=== PATIENT | male | born 1950 | race Caucasian/White ===

== ENCOUNTER 2019-12-31 09:45 | Outpatient (RCR) | payer MEDICARE, OTHER, SELFPAY ==
--- NOTE | 2019-11-24 16:43 | PT.OIE ---
Current Diagnoses Tinnitus, bilateral (11/24/19) Chronic pansinusitis (11/24/19) Dizziness and giddiness (11/24/19) Visit Care Team Role Provider Type Petty Ma DO Primary Care Provider Non-Staff Specialty: Medical Address: [address] [place] [address], [address] Email: Nelson Magaña MD Attending Provider Physician Referring Provider Specialty: Ear, Nose, Throat Address: [address] [place] [address], [id number] Email: [email or web address] Physical Therapy Initial Evaluation PT-OP-A Visit Information Start: 11/24/19 16:18 Freq: Status: Active Protocol: Document 11/24/19 14:30 DCW (Rec: 11/24/19 16:43 DCW [id number]) Out-Patient Physical Therapy Visit Information Visit Information Visit Type Initial Evaluation Visit Start Time 14:30 Visit Stop Time 15:15 Total Visit Minutes 45 Visit Number 1 Number of BERRY PICKER MACHINE OPERATOR Visits 0 Evaluation Information Evaluation Date 11/24/19 PT-OP-B Current Condition Start: 11/24/19 16:18 Freq: Status: Active Protocol: Document 11/24/19 14:30 DCW (Rec: 11/24/19 16:43 DCW [id number]) Current Condition History of Current Condition Onset Date six month history Current Complaints Instability/dizziness with turns History of Current Condition Pt is a 69 year old male complaining of a six month history of motion-induced vertigo and imbalance. Pt reports episodes are provoked by quick head turns or round penning his horses, where essentially he holds the reigns and turns in a [place] as the horse walks around him. Notes if he does two or more of these slow circles, he feels dizzy, and needs to stop and hold on to the horse so he doesn't lose his balance. Pt denies recent hearing changes, diplopia, dysarthria, discoordination, or decreased mentation/consciousness. OPt does note some tinnitus in his right ear, but this has been an ongoing issue for 6+ years. Pt reports symptoms are not waxing/waning in nature. Pt denies excessive smoking or drinking, but does admit to 5- 6 cups of coffee daily. Pt reports he typically drinks coffee until noon, and then switches to water, of which he drinks 40-50 oz daily. 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 Patient Reported Progress Worse Patient Questionnaires Dizziness Handicap Inventory DHI Score 14% PT-OP-O Vestibular Start: 11/24/19 16:18 Freq: Status: Active Protocol: Document 11/24/19 14:30 DCW (Rec: 11/24/19 16:43 DCW [id number]) Vestibular Assessment Screening Tests Vestibular Artery Screen Negative Auditory Tests Sharma Test Within normal limits Rinne Test Negative Air Conduction Results Equal Visual Testing Smooth Pursuits Horizontal WNL Smooth Pursuits Vertical WNL Saccades Horizontal WNL Saccades Vertical WNL Gaze Evoked Nystagmus With Fixation Negative Gaze Evoked Nystagmus Without Fixation Negative Heave Test Negative Thrust Head Negative Phi String Test WNL DVA (Line Degradation) 3 Head Shake Negative Positional Testing Mary-Hallpike Negative Left,Negative Right Rolling Test Negative Left,Negative Right Vestibular Function Tests Fukuda Test 60? R rotation PT-OP-T Assessment and Plan Start: 11/24/19 16:18 Freq: Status: Active Protocol: Document 11/24/19 14:30 DCW (Rec: 11/24/19 16:43 DCW [id number]) Physical Therapy Assessment Rehab Potential Rehabilitation Potential Good Evaluation Complexity Number of Personal Factors/Comorbidities 1-2 Number of Body Systems Impaired 1-2 Clinical Presentation at Evaluation Stable Impairments Impairments Balance,Vestibular Goals Two Impairment Pt unable to perform round penning with his horse secondary to dizziness Furniture Arranger Goal (LTG) Pt to report ability to perform eight turns while performing a round pen with his horse with no increased symptoms. LTG Duration 01/24/20 One Impairment Pt does not have an appropriate home exercise program Short Term Goal (STG) Pt to be independent and compliant with an appropriate HEP STG Duration 12/24/19 Assessment Summary Assessment Pt's vestibular evaluation almost entirely negative today . Pt did have a 60? rotation during his Fukuda step test, however with no other positive tests, this is a very poor diagnostic test, due to myriad other possibilities which could cause a rotation. Only other noted sign of a deficit was pt instructed to turn 720? slowly, mimicking his motions while performing a round pen with his horse, and afterward he demonstrated 4-5 beats of horizontal nystagmus, which really shouldn't be caused by a turn that slowly. Theoretically, this could be caused by increased density of the endolymph due to possible dehydration, I feel this would be rather unlikely, however this was really the only abnormal sign noted throughout his entire examination. Pt should benefit from further vestibular and balance examination to help with differential diagnosis. Pt also scheduled to return to ENT for follow-up testing. Physical Therapy Plan Frequency and Duration Frequency of Treatment 2x/Week Duration of Treatment 2 months Plan of Care Start Date 11/24/19 Plan of Care End Date 01/24/20 Therapeutic Interventions Therapeutic Interventions Balance Training,Coordination Training,Neuromuscular Re- education,Patient/Caregiver Education,Self-Care/Home Management,Therapeutic Exercises,Vestibular Rehabilitation Next Visit Focus/Plan Next Note Type Treatment Note Next Visit Plan Further vestibular and balance testing
--- NOTE | 2019-11-24 16:44 | PT.OPPOC ---
Physical, Occupational & Speech Therapy At [facility] Current Diagnoses Tinnitus, bilateral (11/24/19) Chronic pansinusitis (11/24/19) Dizziness and giddiness (11/24/19) Visit Care Team Role Provider Type Petty Ma DO Primary Care Provider Non-Staff Specialty: Medical Address: [address] [place] [address], [id number] Email: Nelson Magaña MD Attending Provider Physician Referring Provider Specialty: Ear, Nose, Throat Address: [address] [place] [address], [id number] Email: [email or web address] Plan Of Care PT-OP-T Assessment and Plan Start: 11/24/19 16:18 Freq: Status: Active Protocol: Document 11/24/19 14:30 DCW (Rec: 11/24/19 16:43 DCW [id number]) Physical Therapy Assessment Rehab Potential Rehabilitation Potential Good Evaluation Complexity Number of Personal Factors/Comorbidities 1-2 Number of Body Systems Impaired 1-2 Clinical Presentation at Evaluation Stable Impairments Impairments Balance,Vestibular Goals Two Impairment Pt unable to perform round penning with his horse secondary to dizziness Shelter Goal (LTG) Pt to report ability to perform eight turns while performing a round pen with his horse with no increased symptoms. LTG Duration 01/24/20 One Impairment Pt does not have an appropriate home exercise program Short Term Goal (STG) Pt to be independent and compliant with an appropriate HEP STG Duration 12/24/19 Assessment Summary Assessment Pt's vestibular evaluation almost entirely negative today . Pt did have a 60? rotation during his Fukuda step test, however with no other positive tests, this is a very poor diagnostic test, due to myriad other possibilities which could cause a rotation. Only other noted sign of a deficit was pt instructed to turn 720? slowly, mimicking his motions while performing a round pen with his horse, and afterward he demonstrated 4-5 beats of horizontal nystagmus, which really shouldn't be caused by a turn that slowly. Theoretically, this could be caused by increased density of the endolymph due to possible dehydration, I feel this would be rather unlikely, however this was really the only abnormal sign noted throughout his entire examination. Pt should benefit from further vestibular and balance examination to help with differential diagnosis. Pt also scheduled to return to ENT for follow-up testing. Physical Therapy Plan Frequency and Duration Frequency of Treatment 2x/Week Duration of Treatment 2 months Plan of Care Start Date 11/24/19 Plan of Care End Date 01/24/20 Therapeutic Interventions Therapeutic Interventions Balance Training,Coordination Training,Neuromuscular Re- education,Patient/Caregiver Education,Self-Care/Home Management,Therapeutic Exercises,Vestibular Rehabilitation Next Visit Focus/Plan Next Note Type Treatment Note Next Visit Plan Further vestibular and balance testing Plan of Care Dates Plan of Care Start Date 11/24/19 Plan of Care End Date 01/24/20 Electronically Signed by: Mo Colon, PT 11/24/19 0674 Please Sign and Return: I have reviewed this Plan of Care and certify that the skilled therapy services above are required to meet the patient?s needs. Physician Signature Date Printed Name and Credentials Clinical Instructor Signature Printed Name and Credentials
--- NOTE | 2019-12-31 10:30 | PT.OTN ---
Current Diagnoses Tinnitus, bilateral (12/31/19) Chronic pansinusitis (12/31/19) Dizziness and giddiness (12/31/19) Physical Therapy Treatment Note PT-OP-A Visit Information Start: 11/24/19 16:18 Freq: Status: Active Protocol: Document 12/31/19 09:45 DCW (Rec: 12/31/19 10:27 DCW [id number]) Out-Patient Physical Therapy Visit Information Visit Information Visit Type Treatment Note Visit Start Time 09:45 Visit Stop Time 10:25 Total Visit Minutes 35 Visit Number 2 Number of CIRCUIT BREAKER SUPERVISOR Visits 0 Evaluation Information Evaluation Date 11/24/19 PT-OP-B Current Condition Start: 11/24/19 16:18 Freq: Status: Active Protocol: Document 11/24/19 14:30 DCW (Rec: 11/24/19 16:43 DCW [id number]) Current Condition History of Current Condition Onset Date six month history Current Complaints Instability/dizziness with turns History of Current Condition Pt is a 69 year old male complaining of a six month history of motion-induced vertigo and imbalance. Pt reports episodes are provoked by quick head turns or round penning his horses, where essentially he holds the reigns and turns in a [place] as the horse walks around him. Notes if he does two or more of these slow circles, he feels dizzy, and needs to stop and hold on to the horse so he doesn't lose his balance. Pt denies recent hearing changes, diplopia, dysarthria, discoordination, or decreased mentation/consciousness. OPt does note some tinnitus in his right ear, but this has been an ongoing issue for 6+ years. Pt reports symptoms are not waxing/waning in nature. Pt denies excessive smoking or drinking, but does admit to 5- 6 cups of coffee daily. Pt reports he typically drinks coffee until noon, and then switches to water, of which he drinks 40-50 oz daily. PT-OP-C Subjective Start: 11/24/19 16:18 Freq: Status: Active Protocol: Document 12/31/19 09:45 DCW (Rec: 12/31/19 10:27 DCW [id number]) OP-PT Subjective Patient Comments Patient Comments I don't really feel like my symptoms have changed at all, I've just started doing things differently. I don't go in tight circles with the horse, so it hasn't been bothering me as much. Mentally, I see myself as [age], but I've been working on realizing that I'm in my 60s now. PT-OP-E Functional Tests Start: 12/31/19 10:28 Freq: Status: Active Protocol: Document 12/31/19 09:45 DCW (Rec: 12/31/19 10:30 DCW [id number]) Functional Tests Functional Gait Assessment Score 23/30 Functional Gait Assessment Impairment 1 to <20% Impaired (Score 25- Rating 29) PT-OP-O Vestibular Start: 11/24/19 16:18 Freq: Status: Active Protocol: Document 12/31/19 09:45 DCW (Rec: 12/31/19 10:30 DCW [id number]) Vestibular Assessment Visual Testing Smooth Pursuits Horizontal WNL Smooth Pursuits Vertical WNL Heave Test Negative Thrust Head Negative PT-OP-Q Treatments Start: 11/24/19 16:18 Freq: Status: Active Protocol: Document 12/31/19 09:45 DCW (Rec: 12/31/19 10:27 DCW [id number]) Neuro Re-Education Treatment Other Activities 1 Comments Balance testing PT-OP-T Assessment and Plan Start: 11/24/19 16:18 Freq: Status: Active Protocol: Document 12/31/19 09:45 DCW (Rec: 12/31/19 10:27 DCW [id number]) Physical Therapy Assessment Goals Two Impairment Pt unable to perform round penning with his horse secondary to dizziness Automotive Electrical Fitter Goal (LTG) Pt to report ability to perform eight turns while performing a round pen with his horse with no increased symptoms. LTG Duration 01/24/20 One Impairment Pt does not have an appropriate home exercise program Short Term Goal (STG) Pt to be independent and compliant with an appropriate HEP STG Duration 12/24/19 Assessment Summary Assessment Pt still testing with minimal deficits, unclear cause of ongoing subjective complaints. Pt seeing ENT tomorrow, will likely discharge from PT, however will wait until after ENT appointment to see if Dr Magaña has any further ideas or suggestions. Physical Therapy Plan Frequency and Duration Frequency of Treatment 2x/Week Duration of Treatment 2 months Plan of Care Start Date 11/24/19 Plan of Care End Date 01/24/20 Therapeutic Interventions Therapeutic Interventions Balance Training,Coordination Training,Neuromuscular Re- education,Patient/Caregiver Education,Self-Care/Home Management,Therapeutic Exercises,Vestibular Rehabilitation Next Visit Focus/Plan Next Note Type Treatment Note Next Visit Plan Further vestibular and balance testing
--- NOTE | 2020-01-02 08:36 | PT.OPDS ---
Current Diagnoses Tinnitus, bilateral (12/31/19) Chronic pansinusitis (12/31/19) Dizziness and giddiness (12/31/19) Visit Care Team Role Provider Type Petty Ma DO Primary Care Provider Non-Staff Specialty: Medical Address: [address] [place] [address], [id number] Email: Nelson Magaña MD Attending Provider Physician Referring Provider Specialty: Ear, Nose, Throat Address: [address] [place] [address], [address] Email: [email or web address] Visit Number Visit Number 2 Discharge Summary PT-OP-B Current Condition Start: 11/24/19 16:18 Freq: Status: Active Protocol: Document 11/24/19 14:30 DCW (Rec: 11/24/19 16:43 DCW [id number]) Current Condition History of Current Condition Onset Date six month history Current Complaints Instability/dizziness with turns History of Current Condition Pt is a 69 year old male complaining of a six month history of motion-induced vertigo and imbalance. Pt reports episodes are provoked by quick head turns or round penning his horses, where essentially he holds the reigns and turns in a [place] as the horse walks around him. Notes if he does two or more of these slow circles, he feels dizzy, and needs to stop and hold on to the horse so he doesn't lose his balance. Pt denies recent hearing changes, diplopia, dysarthria, discoordination, or decreased mentation/consciousness. OPt does note some tinnitus in his right ear, but this has been an ongoing issue for 6+ years. Pt reports symptoms are not waxing/waning in nature. Pt denies excessive smoking or drinking, but does admit to 5- 6 cups of coffee daily. Pt reports he typically drinks coffee until noon, and then switches to water, of which he drinks 40-50 oz daily. PT-OP-C Subjective Start: 11/24/19 16:18 Freq: Status: Active Protocol: Document 12/31/19 09:45 DCW (Rec: 12/31/19 10:27 DCW [id number]) OP-PT Subjective Patient Comments Patient Comments I don't really feel like my symptoms have changed at all, I've just started doing things differently. I don't go in tight circles with the horse, so it hasn't been bothering me as much. Mentally, I see myself as [age], but I've been working on realizing that I'm in my 60s now. PT-OP-E Functional Tests Start: 12/31/19 10:28 Freq: Status: Active Protocol: Document 12/31/19 09:45 DCW (Rec: 12/31/19 10:30 DCW [id number]) Functional Tests Functional Gait Assessment Score 23/30 Functional Gait Assessment Impairment 1 to <20% Impaired (Score 25- Rating 29) PT-OP-O Vestibular Start: 11/24/19 16:18 Freq: Status: Active Protocol: Document 12/31/19 09:45 DCW (Rec: 12/31/19 10:30 DCW [id number]) Vestibular Assessment Visual Testing Smooth Pursuits Horizontal WNL Smooth Pursuits Vertical WNL Heave Test Negative Thrust Head Negative PT-OP-T Assessment and Plan Start: 11/24/19 16:18 Freq: Status: Active Protocol: Document 01/02/20 08:34 DCW (Rec: 01/02/20 08:35 DCW [id number]) Physical Therapy Assessment Assessment Summary Assessment As discussed, pt phoned following his ENT follow-up to cancel remaining appointments and request discharge. Neither patient or therapist feel that pt will benefit continued skilled vestibular therapy. Pt will be discharged at this time. Physical Therapy Plan Discharge Physical Therapy Discharge Reasons Patient Request
== END 2020-02-20 14:33 ==
LOC: PHYS 09:45
PROVIDERS: PCP Family Medicine; Referring Provider Otolaryngology; Visit Provider Otolaryngology
DX: R42 Dizziness and giddiness (principal); H93.13 Tinnitus, bilateral; J32.4 Chronic pansinusitis
CPT/HCPCS: 97112; 97161